=== PATIENT | female | born 1990 | race Caucasian/White ===

== ENCOUNTER 2022-09-04 19:33 | Emergency (ER) | payer SELFPAY ==
[~2022-09-04] VITALS: Ht 165.1 cm; Wt 98.0 kg
[2022-09-04] MEDS ORDERED: ZOLOFT100 MG PO (19:53)
[2022-09-04] MEDS ORDERED: HYDROXYZINE HCL50 MG PO (19:54)
== END 2022-09-04 20:31 | disposition home or self-care (01) ==
LOC: ED 19:33
DX: J06.9 Acute upper respiratory infection, unspecified (principal); Z20.822 Contact with and (suspected) exposure to COVID-19; Z88.8 Allergy status to other drugs, medicaments and biological substances; Z88.5 Allergy status to narcotic agent; Z79.899 Other long term (current) drug therapy
CPT/HCPCS: 87502; 99283; C9803; U0003

== ENCOUNTER 2023-04-18 10:43 | Emergency (ER) | payer OTHER ==
[~2023-04-18] VITALS: Ht 165.1 cm; Wt 94.8 kg
[~2023-04-18 10:43] MED LIST: FLONASE ALLERG9.9 ML NAS; HYDROXYZINE HCL50 MG PO; ZOLOFT100 MG PO
--- OUTSIDE RECORDS SUMMARY | 2023-04-18 10:51 | XMS ---
PreManage Notification: EDWIN BRADLEY Security [employer] Events No recent Security Events currently on file CRITERIA MET - [facility] [place] - 2 Visits in 30 Days CARE PROVIDERS -Tamar- Dentist: [facility] PHONE: [phone] Hussein has no Care Guidelines for this patient. Kaz VISIT COUNT (12 MO.) [address] [place] [address] TOTAL 5 NOTE: Visits indicate total known visits. ED/C VISIT TRACKING (12 MO.) 04/18/2023 10:43 [facility] [place] TYPE: Emergency COMPLAINT: - EAR PROBLEM 04/11/2023 22:46 [facility] [place] TYPE: Emergency COMPLAINT: - L EAR NEEDS TO POPPED DIAGNOSES: - Allergy status to narcotic agent - Allergy status to other drugs, medicaments and biological substances - Otalgia, left ear - Unspecified Eustachian tube disorder, left ear 04/09/2023 10:16 [facility] [place] TYPE: Emergency COMPLAINT: - R SIDE ABD PAIN DIAGNOSES: - Allergy status to analgesic agent - Allergy status to narcotic agent - Allergy status to other drugs, medicaments and biological substances - Nausea with vomiting, unspecified - Right upper quadrant pain 03/08/2023 12:37 [facility] [place] TYPE: Emergency COMPLAINT: - CHEST PAIN DIAGNOSES: - Allergy status to narcotic agent - Allergy status to other drugs, medicaments and biological substances - Chest pain, unspecified - Nicotine dependence, unspecified, uncomplicated 09/04/2022 19:34 [facility] [place] TYPE: Emergency COMPLAINT: - POSS COVID DIAGNOSES: - Acute upper respiratory infection, unspecified - Allergy status to narcotic agent - Allergy status to other drugs, medicaments and biological substances - Contact with and (suspected) exposure to COVID-19 - Cough, unspecified - Other senior care (current) drug therapy INPATIENT VISIT TRACKING (12 MO.) No inpatient visits to display in this time frame [email or web address]
[2023-04-18] MEDS ORDERED: AMOXICILLIN500 MG PO (11:05)
[2023-04-18 11:27] VITALS: BP 119/73
== END 2023-04-18 11:28 | disposition home or self-care (01) ==
LOC: ED 10:43
DX: H66.92 Otitis media, unspecified, left ear (principal); Z88.6 Allergy status to analgesic agent; Z88.8 Allergy status to other drugs, medicaments and biological substances; Z88.5 Allergy status to narcotic agent; Z79.899 Other long term (current) drug therapy
CPT/HCPCS: 99282